=== PATIENT | female | born 1960 | race Caucasian/White ===

== ENCOUNTER 2016-10-12 13:37 | Emergency (ER) | payer OTHER ==
[2016-10-12 13:54] VITALS: BP 167/94; PULSE 66; RESP 16; TEMP 97.5; O2SAT 96
--- NOTE | 2016-10-12 13:59 | EDPHY ---
H & P Stated Complaint: rt ankle pain Time Seen by Provider: 10/12/16 13:54 HPI/ROS: CHIEF COMPLAINT: Ankle pain HISTORY OF PRESENT ILLNESS: The patient is a 56-year-old female who states that she has pain and swelling in her anterior ankle for the last week. She states that a week ago [place] and [place]. She has had mild pain since that time. No bruising. No bony deformities. No tingling numbness or weakness. REVIEW OF SYSTEMS: Constitutional: denies: chills, fever, recent illness, recent injury EENTM: denies: blurred vision, double vision, nose congestion Respiratory: denies: cough, shortness of breath Cardiac: denies: chest pain, irregular heart rate, lightheadedness, palpitations Gastrointestinal/Abdominal: denies: abdominal pain, diarrhea, nausea, vomiting, blood streaked stools Genitourinary: denies: dysuria, frequency, hematuria, pain Musculoskeletal: See HPI Skin: denies: lesions, rash, jaundice, bruising Neurological: denies: headache, numbness, paresthesia, tingling, dizziness, weakness Hematologic/Lymphatic: denies: blood clots, easy bleeding, easy bruising Immunologic/allergic: denies: HIV/AIDS, transplant EXAM: GENERAL: Well-appearing, well-nourished and in no acute distress. HEAD: Atraumatic, normocephalic. EYES: Pupils equal round and reactive to light, extraocular movements intact, sclera anicteric, conjunctiva are normal. ENT: TMs normal, nares patent, oropharynx clear without exudates. Moist mucous membranes. NECK: Normal range of motion, supple without lymphadenopathy or JVD. LUNGS: Breath sounds clear to auscultation bilaterally and equal. No wheezes rales or rhonchi. HEART: Regular rate and rhythm without murmurs, rubs or gallops. ABDOMEN: Soft, nontender, normoactive bowel sounds. No guarding, no rebound. No masses appreciated. BACK: No CVA tenderness, no spinal tenderness, step-offs or deformities EXTREMITIES: Patient has mild edema in the ankle region. No bony tenderness. No ligamentous pain. She has pain with dorsiflexion of her ankle and has slightly limited range of motion but normal strength. It is painful for her to dorsiflex her ankle. NEUROLOGICAL: Cranial nerves II through XII grossly intact. Normal speech, normal gait. 5/5 strength, normal movement in all extremities, normal sensation PSYCH: Normal mood, normal affect. SKIN: Warm, dry, normal turgor, no visible rashes or lesions. Source: Patient Exam Limitations: No limitations - Personal History Current Tetanus/Diphtheria Vaccine: Yes - Medical/Surgical History Hx Asthma: No Hx Chronic Respiratory Disease: No Hx Diabetes: No Hx Cardiac Disease: No Hx Renal Disease: No Hx Cirrhosis: No Hx Alcoholism: No Hx HIV/AIDS: No Hx Splenectomy or Spleen Trauma: No Other PMH: hyperthyroid - Family History Significant Family History: No pertinent family hx - Social History Smoking Status: Never smoked Alcohol Use: Sober Drug Use: None Constitutional: Initial Vital Signs Temperature (C) 36.4 C 10/12/16 13:49 Heart Rate 66 10/12/16 13:49 Respiratory Rate 16 10/12/16 13:49 Blood Pressure 167/94 H 10/12/16 13:49 O2 Sat (%) 96 10/12/16 13:49 O2 Delivery Mode Room Air Medical Decision Making Procedures: Procedure: Splint placement. A [place] boot splint was applied. After application of the splint I returned and re-examined the patient. The splint was adequately immobilizing the joint and distal to the splint the patient's circulation and sensation was intact. ED Course/Re-evaluation: I suspect the patient has a strain or tear of her anterior tibialis tendon. She has pain to the lower a anterior sims region and swelling distally to that. She has pain with dorsiflexion of her ankle and some limited range of motion. I will place her in at [place] boot and Trevor wrap and encouraged elevation and ibuprofen. I will also have her follow up with Orthopedics . She understands and agrees with this plan. Differential Diagnosis: Partial list of the Differential diagnosis considered include but were not limited to; tendinitis, sprain and although unlikely based on the history and physical exam, I also considered fracture, dislocation, nerve injury, vascular injury, infection. I discussed these differential diagnoses and the plan with the patient as well as the usual and expected course. The patient understands that the diagnosis is provisional and that in medicine we are not always correct and that further workup is often warranted. Usual and customary warnings were given. All of the patient's questions were answered. The patient was instructed to return to the emergency department should the symptoms at all worsen or return, otherwise to followup with the physician as we discussed. Departure - Departure Disposition: Home, Routine, Self-Care Clinical Impression: Tendinitis of ankle Condition: Fair Instructions: Tendinitis (ED), RICE Therapy (ED) Referrals: MD FRANCISCO [Other] - As per Instructions Matt Hansen MD [Medical Doctor] - 5-7 days, if not improved
== END 2016-10-12 14:15 | disposition home or self-care (01) ==
LOC: CED 13:37
DX: M77.9 Enthesopathy, unspecified (principal)
CPT/HCPCS: L4386